=== PATIENT | male | born 1985 | race Hispanic/Latino ===

== ENCOUNTER 2016-06-05 19:28 | Emergency (ER) | payer OTHER ==
[~2016-06-05] VITALS: Ht 177.8 cm; Wt 72.8 kg
[2016-06-05] MEDS ORDERED: MOTRIN800 MG PO (20:51)
[2016-06-05] MEDS ORDERED: FLEXERIL10 MG PO (20:51)
[2016-06-05 22:05] VITALS: BP 130/75
== END 2016-06-05 22:07 | disposition home or self-care (01) ==
LOC: EME 19:28 → RME 19:28
DX: S16.1XXA Strain of muscle, fascia and tendon at neck level, initial encounter (principal); S29.002A Unspecified injury of muscle and tendon of back wall of thorax, initial encounter; V49.40XA Driver injured in collision with unspecified motor vehicles in traffic accident, initial encounter
CPT/HCPCS: 71020; 99281; 99284

== ENCOUNTER 2017-01-16 12:14 | Emergency (ER) | payer OTHER ==
[~2017-01-16] VITALS: Ht 177.8 cm; Wt 69.6 kg
[~2017-01-16 12:14] MED LIST: FLEXERIL10 MG PO; MOTRIN800 MG PO
[2017-01-16 14:30] LABS: HEMATOCRIT 46.3 % (38.0-50.0); MCH 31.7 PG (29.0-34.0); MCHC 33.9 G/DL (30.0-36.0); MCV 93.3 FL (86-99); PLATELET COUNT 271 K/uL (156-360); RBC DIS.WIDTH-CV 12.2 % (11.8-14.6); RBC DIS.WIDTH-SD 42.2 % (39-53); RED BLOOD COUNT 4.96 M/uL (4.00-5.50); WHITE BLOOD COUNT 9.1 K/uL (4.1-10.2)
[2017-01-16 14:51] LABS: CHLORIDE 108 mEq/L (99-109); POTASSIUM 4.5 mEq/L (3.7-5.4); SODIUM 140 mEq/L (136-147)
[2017-01-16 14:53] LABS: GLUCOSE 98 mg/dL (70-99)
[2017-01-16 14:54] LABS: ANION GAP 6 MEQ/L (2-14)
[2017-01-16 14:57] VITALS: BP 154/81
[2017-01-16 14:57] LABS: GFR ESTIMATE (CALCULATED) > 59 mL/min/
[2017-01-16 14:58] LABS: UREA NITROGEN (BUN) 12 mg/dL (9-23)
[2017-01-16] MEDS ORDERED: ZOFRAN ODT4 MG PO (15:15)
[2017-01-16] MEDS ORDERED: FLEXERIL10 MG PO (15:15)
== END 2017-01-16 16:12 | disposition home or self-care (01) ==
LOC: EME 12:14
PROVIDERS: Nurse Practitioner Family
DX: B34.9 Viral infection, unspecified (principal); M62.838 Other muscle spasm; R11.0 Nausea
CPT/HCPCS: 71020; 80048; 85027; 99281; 99285; J1885

== ENCOUNTER 2017-01-21 04:58 | Emergency (ER) | payer SELFPAY ==
[~2017-01-21] VITALS: Ht 177.8 cm; Wt 71.6 kg
[~2017-01-21 04:58] MED LIST changes: +ZOFRAN ODT4 MG PO
[2017-01-21 05:41] LABS: HEMATOCRIT 44.4 % (38.0-50.0); MCH 31.5 PG (29.0-34.0); MCHC 33.8 G/DL (30.0-36.0); MCV 93.3 FL (86-99); MEAN PLAT.VOLUME 9.1 uM^3 (9.0-12.4); PLATELET COUNT 270 K/uL (156-360); RBC DIS.WIDTH-CV 12.2 % (11.8-14.6); RBC DIS.WIDTH-SD 42.3 % (39-53); RED BLOOD COUNT 4.76 M/uL (4.00-5.50); WHITE BLOOD COUNT 15.5 K/uL (4.1-10.2)
[2017-01-21 05:53] LABS: CHLORIDE 104 mEq/L (99-109); POTASSIUM 3.9 mEq/L (3.7-5.4); SODIUM 137 mEq/L (136-147)
[2017-01-21 05:55] LABS: GLUCOSE 120 mg/dL (70-99)
[2017-01-21 05:57] LABS: ANION GAP 8 MEQ/L (2-14); TOTAL BILIRUBIN 0.3 mg/dL (0.0-1.0)
[2017-01-21 05:59] LABS: ALKALINE PHOSPHATASE 84 IU/L (3-129); GFR ESTIMATE (CALCULATED) > 59 mL/min/
[2017-01-21 06:00] LABS: UREA NITROGEN (BUN) 14 mg/dL (9-23)
[2017-01-21 06:02] LABS: LIPASE 32 U/L (1.0-51.0)
[2017-01-21 06:23] LABS: ADD MIUA? YES; BILIRUBIN NEGATIVE; BLOOD NEGATIVE; COLOR YELLOW ((YELLOW)); GLUCOSE (STRIP) NEGATIVE; KETONES NEGATIVE; LEUKOCYTES NEGATIVE; NITRITE NEGATIVE; PROTEIN (STRIP) NEGATIVE; SPECIFIC GRAVITY 1.014 (1.000-1.030); UROBILINOGEN 0.2 MG/DL (0.2-1.0)
[2017-01-21 06:29] LABS: BACTERIA NONE SEEN /HPF; EPITHELIAL CELLS NONE SEEN /HPF; MUCUS TRACE /LPF; RED BLOOD CELLS 0-5 /HPF (0-5); UCUL ADDED? NO; WHITE BLOOD CELLS NONE SEEN /HPF (0-5)
[2017-01-21] MEDS ORDERED: ZOFRAN ODT4 MG PO (08:21)
[2017-01-21] MEDS ORDERED: PRILOSEC20 MG PO (08:21)
[2017-01-21 08:37] VITALS: BP 132/83
== END 2017-01-21 08:39 | disposition home or self-care (01) ==
LOC: EME 04:58
DX: K52.9 Noninfective gastroenteritis and colitis, unspecified (principal)
CPT/HCPCS: 74177; 80053; 81003; 83690; 85027; 99281; 99284; J2405; J3010; J7030